=== PATIENT | female | born 1990 | race Caucasian/White ===

== ENCOUNTER 2017-06-29 15:07 | Inpatient (IN) | payer BC ==
[2017-06-29] MEDS ORDERED: Butorphanol 1 MG/ML SDV IVPUSH PRN (15:15)
[2017-06-29] MEDS ORDERED: Water For Irrigation,Sterile 1,000 ML Container IRR PRN (15:15)
[2017-06-29] MEDS ORDERED: Tranexamic Acid 1,000 MG in Sodium Chloride 0.9% 100 ML IV PRN (15:15)
[2017-06-29] MEDS ORDERED: Methylergonovine 0.2 MG/1 ML Amp IM PRN (15:15)
[2017-06-29] MEDS ORDERED: Lidocaine 1% 50 ML MDV INJECT PRN (15:15)
[2017-06-29] MEDS ORDERED: Oxytocin/0.9 % Sodium Chloride 30 UNIT/500 ML BAG IV SCH ×2 (15:15→18:45)
[2017-06-29] MEDS ORDERED: Carboprost Tromethamine 250 MCG/1 ML Amp IM PRN (15:15)
[2017-06-29] MEDS ORDERED: Sodium Chloride 0.9% 2.5 ML Syringe FLUSH PRN (15:15)
[2017-06-29] MEDS ORDERED: Misoprostol 200 MCG Tab PO PRN (15:15)
[2017-06-29] MEDS ORDERED: Sodium Chloride 0.9% 10 ML Syringe FLUSH PRN (15:15)
[2017-06-29] MEDS ORDERED: Nalbuphine 10 MG/ML 10 ML MDV IVPUSH PRN (15:15)
[2017-06-29] MEDS: Lactated Ringers 1,000 ML IV SCH ×3 (18:37→19:57)
[2017-06-29] MEDS ORDERED: Terbutaline 1 MG/ML SDV SUBCUT PRN (18:44)
[2017-06-29] MEDS ORDERED: fentaNYL 100 MCG/2 ML SDV ONE ×2 (19:08→20:59)
--- NOTE | 2017-06-29 19:56 | PCM.PREANE ---
Preanesthetic Assessment - Anesthesia/Transfusion/Family Hx Anesthesia History: Prior Anesthesia Without Reaction (Previous epidural - states "it was the hardest part of my pregancy") Family History of Anesthesia Reaction: No Transfusion History: No Prior Transfusion(s) - Review of Systems General: No Symptoms Pulmonary: No Symptoms Cardiovascular: No Symptoms Gastrointestinal: No Symptoms Neurological: No Symptoms Other: Reports: Anxiety - Physical Assessment NPO Status Date: 06/29/17 NPO Status Time: 19:55 (sips/chips) Blood Pressure: 124/65 Height: 5 ft 9 in Weight: 168 lb ASA Class: 2 Mental Status: Alert & Oriented x3 Airway Class: Mallampati = 2 Dentition: Reports: Normal Dentition Thyro-Mental Finger Breadths: 3 Mouth Opening Finger Breadths: 3 ROM/Head Extension: Full Lungs: Clear to Auscultation, Normal Respiratory Effort Cardiovascular: Regular Rate, Regular Rhythm - Lab Values: Laboratory Last Values WBC 7.75 K/uL (4.0-11.0) 06/29/17 15:26 RBC 4.31 M/uL (4.30-5.90) 06/29/17 15:26 Hgb 13.5 g/dL (12.0-16.0) 06/29/17 15:26 Hct 39.5 % (36.0-46.0) 06/29/17 15:26 MCV 91.6 fL (80.0-98.0) 06/29/17 15:26 MCH 31.3 pg (27.0-32.0) 06/29/17 15:26 MCHC 34.2 g/dL (31.0-37.0) 06/29/17 15:26 RDW Std Deviation 44.1 fl (28.0-62.0) 06/29/17 15:26 RDW Coeff of Fermín 13 % (11.0-15.0) 06/29/17 15:26 Plt Count 136 K/uL (150-400) L 06/29/17 15:26 MPV 10.50 fL (7.40-12.00) 06/29/17 15:26 Nucleated RBC % 0.0 /100WBC 06/29/17 15:26 Nucleated RBCs # 0 K/uL 06/29/17 15:26 Blood Type O POSITIVE 06/29/17 15:26 Antibody Screen NEGATIVE 06/29/17 15:26 - Allergies Allergies/Adverse Reactions: Allergies Allergy/AdvReac Type Severity Reaction Status Date / Time No Known Allergies Allergy Verified 06/29/17 15:14 - Blood Blood Available: No Product(s) Available: None - Anesthesia Plan Free Text/Narrative:: Labor Epidural - Acknowledgements Anesthesia Type Planned: Epidural Pt an Appropriate Candidate for the Planned Anesthesia: Yes Alternatives and Risks of Anesthesia Discussed w Pt/Guardian: Yes Pt/Guardian Understands and Agrees with Anesthesia Plan: Yes PreAnesthesia Questionnaire - Past Health History Medical/Surgical History: Denies 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: - SUBSTANCE USE Smoking Status *Q: Never Smoker Second Hand Smoke Exposure: No Recreational Drug Use History: No - HOME MEDS Home Medications: Home Meds PNV95/Ferrous Fumarate/FA [ Tablet] 1 each PO DAILY 06/29/17 [History] - CURRENT (IN HOUSE) MEDS Current Meds: Current Medications Butorphanol Tartrate (Stadol) 1 mg IVPUSH Q1H PRN PRN Reason: Pain Carboprost Tromethamine (Hemabate Ds) 250 mcg IM ASDIRECTED PRN PRN Reason: Post Hemorrhage Lactated Ringer's (Ringers, Lactated) 1,000 mls @ 150 mls/hr IV ASDIRECTED KASIA Last Admin: 06/29/17 19:33 Dose: 999 mls/hr Oxytocin/Sodium Chloride (Oxytocin 30 Unit/500 Ml-Ns) 30 unit in 500 mls @ 250 mls/hr IV TITRATE KASIA Tranexamic Acid 1,000 mg/ (Sodium Chloride) 110 mls @ 660 mls/hr IV ONETIME PRN PRN Reason: Bleeding Oxytocin/Sodium Chloride (Oxytocin 30 Unit/500 Ml-Ns) 30 unit in 500 mls @ 2 mls/hr IV TITRATE KASIA; Protocol Last Admin: 06/29/17 19:40 Dose: 2 munits/min, 2 mls/hr Lidocaine HCl (Xylocaine 1%) 50 ml INJECT .ONCE PRN PRN Reason: Laceration repair Methylergonovine Maleate (Methergine) 0.2 mg IM ASDIRECTED PRN PRN Reason: Post Hemorrhage Misoprostol (Cytotec) 200 mcg PO .ONCE PRN PRN Reason: Post Hemorrhage Nalbuphine HCl (Nubain) 10 mg IVPUSH Q1H PRN PRN Reason: Pain (severe 7-10) Sodium Chloride (Saline Flush) 10 ml FLUSH ASDIRECTED PRN PRN Reason: Keep Vein Open Sodium Chloride (Saline Flush) 2.5 ml FLUSH ASDIRECTED PRN PRN Reason: Keep Vein Open Sterile Water (Sterile Water For Irrigation) 1,000 ml IRR ASDIRECTED PRN PRN Reason: delivery Terbutaline Sulfate (Brethine) 0.25 mg SUBCUT ASDIRECTED PRN PRN Reason: Tacysystole Discontinued Medications Fentanyl (Sublimaze) Confirm Administered Dose 100 mcg .ROUTE .STK-MED ONE Stop: 06/29/17 19:09 Fentanyl/Bupivacaine HCl (Ixwtyhhd-Azwsh-Ak 2 Mcg/Ml-0.125%) Confirm Administered Dose 100 mls @ as directed EP .STK-MED ONE Stop: 06/29/17 19:09
[2017-06-29] MEDS ORDERED: Lidocaine 2% 5 ML SDV ONE (20:59)
[2017-06-29] MEDS ORDERED: Benzocaine/Menthol 20%-0.5% Spray 78 GM Cannister TOP PRN (21:24)
[2017-06-29] MEDS ORDERED: Ondansetron 4 MG/2 ML SDV IVPUSH PRN (21:24)
[2017-06-29] MEDS ORDERED: Lanolin 100% Cream 7 GM Tube TOP PRN (21:24)
[2017-06-29] MEDS ORDERED: Acetaminophen 500 MG Tab PO PRN ×2 (21:24)
[2017-06-29] MEDS ORDERED: Ibuprofen 400 MG Tab PO PRN (21:24)
[2017-06-29] MEDS ORDERED: Witch Hazel Medicated Pads 40/Jar TOP PRN (21:24)
[2017-06-29] MEDS ORDERED: Aluminum Hydroxide/Magnesium Hydroxide/Simethicone Susp 30 ML Cup PO PRN (21:24)
[2017-06-29] MEDS ORDERED: Bisacodyl 10 MG Supp RECTAL PRN (21:24)
[2017-06-29] MEDS: Docusate Sodium 100 MG Cap PO PRN (23:20)
[2017-06-29] MEDS: Ibuprofen 800 MG Tab PO PRN (23:21)
--- NOTE | 2017-06-30 00:57 | OR ---
SURGEON: Piper Naylor M.D. DATE OF PROCEDURE: 06/29/2017 PREOPERATIVE DIAGNOSES: 1. A 39 weeks' intrauterine . 2. Premature rupture of membranes. POSTOPERATIVE DIAGNOSES: 1. A 39 weeks' intrauterine . 2. Premature rupture of membranes. PROCEDURE: Spontaneous vaginal delivery. First-degree midline laceration repair. ANESTHESIA: Epidural/local. ESTIMATED BLOOD LOSS: 350 mL. FINDINGS: Term male, scores of 6 at 1 minute and 9 at 5 minutes. Weight is pending. Spontaneous delivery, intact placenta, 3-vessel cord. DISPOSITION: Infant to nursery, mom in LDRP, stable. PROCEDURE IN DETAIL: The patient is a 26-year-old, G2, P1, at 39 weeks' gestational age, who presents with a leaking of fluid today, was evaluated and found to be spontaneously ruptured. She was monitored throughout the afternoon with no evidence of active labor, found to be 2 to 3 cm, heart tones of 140s, therefore, she was initiated on Pitocin augmentation, responded nicely to this and quickly became much more vigorous labor. With increasing discomfort, she underwent regional anesthesia in the form of epidural, became more comfortable, she progressed to 6 cm and then quickly progressed to 8, then to complete within the next approximately 45 minutes. I was called for delivery. Upon my arrival, the patient was placed in modified dorsal lithotomy position. She was prepped and draped in the usual aseptic manner. She was having some pain control issues and her epidural was re-dosed with Anesthesia present. The patient was able to push satisfactory, although delivered 's head atraumatically, spontaneously, followed by anterior shoulder, posterior shoulder, and remainder of the body without difficulty. The infant's oropharynx and nares were bulb suctioned. Cord clamped x2 and cut after nuchal cord had been reduced manually. was handed to his mother with attending nursing staff at her side. Cord arterial, cord venous, and cord blood sampling was obtained. Light suprapubic pressure was applied, while the placenta was delivered spontaneously intact. Vigorous fundal uterine massage was then applied while 30 units of Pitocin was delivered in 500 mL of IV fluid. Upon inspection of cervix, vaginal sidewalls, and perineum, there was found to be a first-degree midline laceration, was repaired using 3-0 Vicryl in the usual fashion after prepping the region with approximately 10 mL of 1% lidocaine. The patient tolerated the procedure well. Hemostasis remained evident. Uterus remained firm. Sponge count and needle count were correct. The patient remained in LDRP, infant in nursery. MIGEL / AARTI /[id number]
--- NOTE | 2017-06-30 06:03 | PCM48HPAN ---
Post Anesthesia Note - EVALUATION WITHIN 48HRS OF ANESTHETIC Vital Signs in Normal Range: Yes Patient Participated in Evaluation: Yes Respiratory Function Stable: Yes Airway Patent: Yes Cardiovascular Function Stable: Yes Hydration Status Stable: Yes Pain Control Satisfactory: Yes Nausea and Vomiting Control Satisfactory: Yes Mental Status Recovered: Yes Blood Pressure: 124/65 - COMMENTS/OBSERVATIONS Free Text/Narrative:: No anesthesia complications
[2017-06-30] MEDS: Docusate Sodium 100 MG Cap PO PRN (08:58)
[2017-06-30] MEDS: oxyCODONE 5 MG Tab PO PRN ×3 (08:58→22:46)
--- NOTE | 2017-06-30 09:04 | PCM.PNPP ---
- General Info Date of Service: 06/30/17 Functional Status: Reports: Pain Controlled, Tolerating Diet, Ambulating, Urinating - Review of Systems General: Denies: Fever, Fatigue, Chills HEENT: Denies: Headaches Pulmonary: Denies: Shortness of Breath, Pleuritic Chest Pain Cardiovascular: Denies: Chest Pain, Palpitations, Dyspnea on Exertion Gastrointestinal: Denies: Abdominal Pain Genitourinary: Denies: Dysuria, Burning, Incontinence Skin: Reports: No Symptoms Neurological: Reports: No Symptoms Psychiatric: Reports: No Symptoms - General Info Date of Service: 06/30/17 - Patient Data Vital Signs - Most Recent: Last Vital Signs Temp 36.6 C 06/30/17 07:39 Pulse 69 06/30/17 07:39 Resp 18 06/30/17 07:39 BP 109/65 06/30/17 07:39 Pulse Ox 97 06/30/17 07:39 Weight - Most Recent: 168 lb Lab Results - Last 24 Hours: Laboratory Results - last 24 hr 06/29/17 06/29/17 06/29/17 Range/Units 15:26 15:26 21:04 WBC 7.75 (4.0-11.0) K/uL RBC 4.31 (4.30-5.90) M/uL Hgb 13.5 (12.0-16.0) g/dL Hct 39.5 (36.0-46.0) % MCV 91.6 (80.0-98.0) fL MCH 31.3 (27.0-32.0) pg MCHC 34.2 (31.0-37.0) g/dL RDW Std Deviation 44.1 (28.0-62.0) fl RDW Coeff of Fermín 13 (11.0-15.0) % Plt Count 136 L (150-400) K/uL MPV 10.50 (7.40-12.00) fL Nucleated RBC % 0.0 /100WBC Nucleated RBCs # 0 K/uL Cord ABG pH 7.350 (7.18-7.38) Cord ABG Base Excess -1 H (-10--2) Cord VBG pH 7.451 H (7.25-7.45) Cord VBG Base Excess -2 (-10--2) Blood Type O POSITIVE Antibody Screen NEGATIVE 06/30/17 Range/Units 04:40 WBC (4.0-11.0) K/uL RBC (4.30-5.90) M/uL Hgb 11.3 L (12.0-16.0) g/dL Hct 32.7 L (36.0-46.0) % MCV (80.0-98.0) fL MCH (27.0-32.0) pg MCHC (31.0-37.0) g/dL RDW Std Deviation (28.0-62.0) fl RDW Coeff of Fermín (11.0-15.0) % Plt Count (150-400) K/uL MPV (7.40-12.00) fL Nucleated RBC % /100WBC Nucleated RBCs # K/uL Cord ABG pH (7.18-7.38) Cord ABG Base Excess (-10--2) Cord VBG pH (7.25-7.45) Cord VBG Base Excess (-10--2) Blood Type Antibody Screen Med Orders - Current: Current Medications Acetaminophen (Tylenol Extra Strength) 500 mg PO Q4H PRN PRN Reason: Pain Acetaminophen (Tylenol Extra Strength) 1,000 mg PO Q4H PRN PRN Reason: Pain Last Admin: 06/30/17 05:34 Dose: 1,000 mg Al Hydroxide/Mg Hydroxide (Mag-Al Plus) 30 ml PO Q8H PRN PRN Reason: Heartburn Benzocaine/Menthol (Dermoplast Pain Relief 20%-0.5% [place]) 0 gm TOP ASDIRECTED PRN PRN Reason: Perineal Comfort Measure Last Admin: 06/29/17 23:19 Dose: 1 canister Bisacodyl (Dulcolax) 10 mg RECTAL .ONCE PRN PRN Reason: Constipation Carboprost Tromethamine (Hemabate Ds) 250 mcg IM ASDIRECTED PRN PRN Reason: Post Hemorrhage Docusate Sodium (Colace) 100 mg PO BID PRN PRN Reason: Constipation Last Admin: 06/29/17 23:20 Dose: 100 mg Emollient Ointment (Lansinoh Hpa) 0 gm TOP ASDIRECTED PRN PRN Reason: Sore Nipples Last Admin: 06/29/17 23:21 Dose: 1 tube Lactated Ringer's (Ringers, Lactated) 1,000 mls @ 150 mls/hr IV ASDIRECTED KASIA Last Admin: 06/29/17 19:57 Dose: 999 mls/hr Oxytocin/Sodium Chloride (Oxytocin 30 Unit/500 Ml-Ns) 30 unit in 500 mls @ 250 mls/hr IV TITRATE KASIA Last Admin: 06/29/17 22:06 Dose: 250 mls/hr Tranexamic Acid 1,000 mg/ (Sodium Chloride) 110 mls @ 660 mls/hr IV ONETIME PRN PRN Reason: Bleeding Oxytocin/Sodium Chloride (Oxytocin 30 Unit/500 Ml-Ns) 30 unit in 500 mls @ 2 mls/hr IV TITRATE [facility]; Protocol Last Admin: 06/29/17 19:40 Dose: 2 munits/min, 2 mls/hr Ibuprofen (Motrin) 400 mg PO Q4H PRN PRN Reason: Pain Ibuprofen (Motrin) 800 mg PO Q6H PRN PRN Reason: Pain Last Admin: 06/29/17 23:21 Dose: 800 mg Lidocaine HCl (Xylocaine 1%) 50 ml INJECT .ONCE PRN PRN Reason: Laceration repair Last Admin: 06/29/17 21:46 Dose: 50 ml Methylergonovine Maleate (Methergine) 0.2 mg IM ASDIRECTED PRN PRN Reason: Post Hemorrhage Nalbuphine HCl (Nubain) 10 mg IVPUSH Q1H PRN PRN Reason: Pain (severe 7-10) Ondansetron HCl (Zofran) 4 mg IVPUSH Q6H PRN PRN Reason: Nausea/Vomiting Oxycodone HCl (Oxycodone) 5 mg PO Q2H PRN PRN Reason: Pain Sodium Chloride (Saline Flush) 10 ml FLUSH ASDIRECTED PRN PRN Reason: Keep Vein Open Sodium Chloride (Saline Flush) 2.5 ml FLUSH ASDIRECTED PRN PRN Reason: Keep Vein Open Witch Laly (Tucks) 1 pad TOP ASDIRECTED PRN PRN Reason: comfort care Last Admin: 06/29/17 23:20 Dose: 1 tub Discontinued Medications Butorphanol Tartrate (Stadol) 1 mg IVPUSH Q1H PRN PRN Reason: Pain Fentanyl (Sublimaze) Confirm Administered Dose 100 mcg .ROUTE .STK-MED ONE Stop: 05/09/18 19:09 Last Admin: 06/30/17 07:26 Dose: Not Given Fentanyl (Sublimaze) Confirm Administered Dose 100 mcg .ROUTE .STK-MED ONE Stop: 06/29/17 21:00 Last Admin: 06/30/17 07:26 Dose: Not Given Fentanyl/Bupivacaine HCl (Ajpwamlg-Elvph-Ma 2 Mcg/Ml-0.125%) Confirm Administered Dose 100 mls @ as directed EP .STK-MED ONE Stop: 06/29/17 19:09 Last Admin: 06/30/17 07:26 Dose: Not Given Lidocaine (Xylocaine-Mpf 2%) Confirm Administered Dose 5 ml .ROUTE .STK-MED ONE Stop: 06/29/17 21:00 Last Admin: 06/30/17 07:26 Dose: Not Given Misoprostol (Cytotec) 200 mcg PO .ONCE PRN PRN Reason: Post Hemorrhage Sterile Water (Sterile Water For Irrigation) 1,000 ml IRR ASDIRECTED PRN PRN Reason: delivery Last Admin: 06/29/17 21:46 Dose: 1,000 ml Terbutaline Sulfate (Brethine) 0.25 mg SUBCUT ASDIRECTED PRN PRN Reason: Tacysystole - Interaction Disposition, : to Nursery Feeding: Breastfed ; Nursed Well Support Person: - Recovery Exam Fundal Tone: Firm Fundal Level: At Umbilicus Fundal Placement: Left Lochia Amount: Small Lochia Color: Rubra/Red Perineum Description: Intact, Minimal Bruising/Swelling Episiotomy/Laceration: Approximated Bladder Status: Voiding Urinary Elimination: Voided - Exam General: Alert, Oriented HEENT: Pupils Equal Neck: Supple Lungs: Clear to Auscultation, Normal Respiratory Effort Cardiovascular: Regular Rate, Regular Rhythm GI/Abdominal Exam: Normal Bowel Sounds Extremities: Non-Tender, Pedal Edema Skin: Warm Psy/Mental Status: Alert, Normal Affect, Normal Mood - Problem List & Annotations (1) Vaginal delivery SNOMED Code(s): 141973088 Code(s): O80 - ENCOUNTER FOR FULL-TERM UNCOMPLICATED DELIVERY Status: Acute Current Visit: Yes - Problem List Review Problem List Initiated/Reviewed/Updated: Yes - My Orders Last 24 Hours: My Active Orders 06/29/17 15:15 Patient Status [ADT] Routine Heart Tones [RC] CONTINUOUS Non Stress Test [RC] PER UNIT ROUTINE May Shower [RC] ASDIRECTED Notify Provider [RC] PRN Up ad Adrienne [RC] ASDIRECTED Vaginal Exam [RC] PRN Vital Signs [RC] PER UNIT ROUTINE Carboprost Tromethamine [Hemabate DS] 250 mcg IM ASDIRECTED PRN Lactated Ringers [Ringers, Lactated] 1,000 ml IV ASDIRECTED Lidocaine 1% [Xylocaine 1%] 50 ml INJECT .ONCE PRN Methylergonovine [Methergine] 0.2 mg IM ASDIRECTED PRN Nalbuphine [Nubain] 10 mg IVPUSH Q1H PRN Oxytocin/0.9 % Sodium Chloride [Oxytocin 30 Unit/500 ML-NS] 30 unit in 500 ml IV TITRATE Sodium Chloride 0.9% [Saline Flush] 10 ml FLUSH ASDIRECTED PRN Sodium Chloride 0.9% [Saline Flush] 2.5 ml FLUSH ASDIRECTED PRN Tranexamic Acid [Cyklokapron] 1,000 mg Sodium Chloride 0.9% [Normal Saline] 100 ml IV ONETIME Peripheral IV Insertion Adult [OM.PC] Routine Resuscitation Status Routine 06/29/17 18:44 Bedrest Bathroom Privileges [RC] ASDIRECTED Communication Order [RC] ASDIRECTED Communication Order [RC] ASDIRECTED Notify Provider [RC] PRN Notify Provider [RC] STAT Oxygen Therapy [RC] ASDIRECTED Vaginal Exam [RC] PRN Vital Signs [RC] PER UNIT ROUTINE 06/29/17 18:45 Oxytocin/0.9 % Sodium Chloride [Oxytocin 30 Unit/500 ML-NS] 30 unit in 500 ml IV TITRATE Medication Administration Instruction [OM.PC] Q3H 06/30/17 08:57 Ready for Discharge [RC] PER UNIT ROUTINE - Assessment Assessment:: PPD#1 s/p stable and afebrile Clinically stable and would like to go home later today - Plan Plan:: Discharge instructions were reviewed with patient Nothing in the vagina for 6 weeks Bleeding and infection precautions reviewed Continue PNV and use OTC pain meds PRN S/S of blues and depression reviewed Follow up in 6 weeks
[2017-06-30] MEDS: Ibuprofen 800 MG Tab PO PRN ×2 (12:04→19:24)
== END 2017-06-30 22:45 | disposition home or self-care (01) | DRG 560 ==
LOC: MW.OBCHECK 15:07 → MW.OB 15:10 → MW.OBCHECK 15:15 → OBSVTOIN 21:04
PROVIDERS: ADMIT Obstetrics & Gynecology; ATTEND Obstetrics & Gynecology
PROC: 10E0XZZ Delivery of Products of Conception, External Approach (ICD-10-PCS; principal; 2017-06-29)
PROC: 0HQ9XZZ Repair Perineum Skin, External Approach (ICD-10-PCS; 2017-06-29)
DX: O42.02 Full-term premature rupture of membranes, onset of labor within 24 hours of rupture (principal); O70.0 First degree perineal laceration during delivery; Z3A.39 39 weeks gestation of pregnancy; Z37.0 Single live birth
CPT/HCPCS: 36415; 51702; 59025; 59409; 82803; 85014; 85018; 85027; 86850; 86900; 86901; A9270-GY; J2590; J7120

== ENCOUNTER 2018-04-27 11:27 | Day surgery (SDC) | payer BC ==
[2018-04-27] MEDS ORDERED: Sodium Chloride 0.9% 2.5 ML Syringe FLUSH PRN (11:32)
[2018-04-27] MEDS ORDERED: Sodium Chloride 0.9% 10 ML Syringe FLUSH PRN (11:32)
[2018-04-27] MEDS ORDERED: Sodium Chloride 0.9% 1,000 ML IV ONE (11:32)
--- NOTE | 2018-04-27 12:05 | EDM.PDOC ---
ED HPI GENERAL MEDICAL PROBLEM - General Chief Complaint: Abdominal Pain Stated Complaint: RIGHT SIDE ABDOMINAL PAIN Time Seen by Provider: 04/27/18 11:29 Source of Information: Reports: Patient History Limitations: Reports: No Limitations - History of Present Illness INITIAL COMMENTS - FREE TEXT/NARRATIVE: History of present illness: []Patient started having abdominal pain behind her bellybutton 4 nights ago the pain has progressively been worsening and now it is localized to the right lower abdomen. She denies injuring any fevers or chills but has felt hot she states due to pain. Has not had any vomiting, diarrhea, urinary complaints. His abdominal surgeries.. Review of systems: As per history of present illness and below otherwise all systems reviewed and negative. Past medical history: As per history of present illness and as reviewed below otherwise noncontributory. Surgical history: As per history of present illness and as reviewed below otherwise noncontributory. Social history: No reported history of drug or alcohol abuse. Family history: As per history of present illness and as reviewed below otherwise noncontributory. Physical exam: General: Well developed, well nourished in NAD HEENT: Atraumatic, normocephalic, pupils reactive, negative for conjunctival pallor or scleral icterus, mucous membranes moist, throat clear, neck supple, nontender, trachea midline. Lungs: Clear to auscultation, breath sounds equal bilaterally, chest nontender. Heart: S1S2, regular, negative for clicks, rubs, or JVD. Abdomen: NABS, Soft, nondistended, tender bilaterally in the lower abdomen without rebound or guarding. Negative for masses or hepatosplenomegaly. Negative for costovertebral tenderness. Pelvis: Stable nontender. Genitourinary: Deferred. Rectal: Deferred. Extremities: Atraumatic, negative for cords or calf pain. Neurovascular unremarkable. Neuro: Awake, alert, oriented. Cranial nerves II through XII unremarkable. Cerebellum unremarkable. Motor and sensory unremarkable throughout. Exam nonfocal. Skin:warm and dry Diagnostics: CBC, CMP, lipase, UA, , CT abdomen pelvis Therapeutics: IV hydration, Zosyn ED Course: Dinh consulted he will be taking this patient to surgery for short stay. Impression: Acute appendicitis Prescriptions: None Plan: Admit short stay surgery Definitive disposition and diagnosis as appropriate pending reevaluation and review of above. Right Lower Abdomen Pain Score (Numeric/FACES): 6 - Related Data Allergies Allergy/AdvReac Type Severity Reaction Status Date / Time No Known Allergies Allergy Verified 04/27/18 11:47 Home Meds: Home Meds Norethindrone 1 tab DAILY 04/27/18 [History] Past Medical History - Past Health History Medical/Surgical History: Denies Medical/Surgical History [employer] History: Reports: Social & Family History - Family History Family Medical History: Noncontributory Psychiatric: Reports: Other (See Below) Other Psychiatric Family History: Alcoholic - Tobacco Use Smoking Status *Q: Never Smoker - Recreational Drug Use Recreational Drug Use: No ED ROS GENERAL - Review of Systems Review Of Systems: ROS reveals no pertinent complaints other than HPI. ED EXAM, GI/ABD - Physical Exam Exam: See Below (See history of present illness) Course - Vital Signs Last Recorded V/S: Last Vital Signs Temp 97.4 F 04/27/18 14:57 Pulse 66 04/27/18 14:57 Resp 18 04/27/18 16:08 BP 96/65 04/27/18 14:57 Pulse Ox 98 04/27/18 16:08 - Orders/Labs/Meds Orders: Active Orders 24 hr Category Date Time Status Patient Status [ADT] Routine ADT 04/27/18 15:50 Active Antiembolic Devices [RC] PER UNIT ROUTINE Care 04/27/18 15:50 Active Insert Urinary Catheter [OM.PC] Timed Care 04/27/18 15:50 Ordered Oxygen Therapy [RC] ASDIRECTED Care 04/27/18 15:50 Active RT Incentive Spirometry [RC] Q1HWA Care 04/27/18 15:50 Active Skin Preparation [RC] .PREOP Care 04/27/18 15:50 Active Urinary Catheter Assessment [RC] ASDIRECTED Care 04/27/18 15:50 Active Urinary Catheter Assessment [RC] ASDIRECTED Care 04/27/18 15:50 Active Urinary Catheter Assessment [RC] ASDIRECTED Care 04/27/18 15:50 Active Vital Signs [RC] PER UNIT ROUTINE Care 04/27/18 15:50 Active Nothing Per Oral Diet [DIET] Diet 04/27/18 Dinner Active Lactated Ringers [Ringers, Lactated] 1,000 ml Med 04/27/18 16:00 Active IV ASDIRECTED Sodium Chloride 0.9% [Saline Flush] Med 04/27/18 11:32 Active 10 ml FLUSH ASDIRECTED PRN Sodium Chloride 0.9% [Saline Flush] Med 04/27/18 11:32 Active 2.5 ml FLUSH ASDIRECTED PRN Antiembolic Hose [OM.PC] Routine Oth 04/27/18 15:50 Ordered Saline Lock Insert [OM.PC] Stat Oth 04/27/18 11:32 Ordered Resuscitation Status Routine Resus Stat 04/27/18 15:49 Ordered Medication Orders Lactated Ringer's (Ringers, Lactated) 1,000 mls @ 125 mls/hr IV ASDIRECTED KASIA Sodium Chloride (Saline Flush) 10 ml FLUSH ASDIRECTED PRN PRN Reason: Keep Vein Open Sodium Chloride (Saline Flush) 2.5 ml FLUSH ASDIRECTED PRN PRN Reason: Keep Vein Open Labs: Laboratory Tests 04/27/18 04/27/18 04/27/18 Range/Units 11:45 11:45 12:15 WBC 6.43 (4.0-11.0) K/uL RBC 4.88 (4.30-5.90) M/uL Hgb 14.8 (12.0-16.0) g/dL Hct 43.0 (36.0-46.0) % MCV 88.1 (80.0-98.0) fL MCH 30.3 (27.0-32.0) pg MCHC 34.4 (31.0-37.0) g/dL RDW Std Deviation 42.7 (28.0-62.0) fl RDW Coeff of [place] 13 (11.0-15.0) % Plt Count 194 (150-400) K/uL MPV 9.30 (7.40-12.00) fL Neut % (Auto) 62.2 (48.0-80.0) % Lymph % (Auto) 24.3 (16.0-40.0) % [place] % (Auto) 8.2 (0.0-15.0) % Eos % (Auto) 5.0 (0.0-7.0) % Baso % (Auto) 0.3 (0.0-1.5) % Neut # (Auto) 4.0 (1.4-5.7) K/uL Lymph # (Auto) 1.6 (0.6-2.4) K/uL [place] # (Auto) 0.5 (0.0-0.8) K/uL Eos # (Auto) 0.3 (0.0-0.7) K/uL Baso # (Auto) 0.0 (0.0-0.1) K/uL Sodium 144 (136-145) mmol/L Potassium 3.7 (3.5-5.1) mmol/L Chloride 107 (98-107) mmol/L Carbon Dioxide 25.9 (21.0-32.0) mmol/L BUN 16 (7.0-18.0) mg/dL Creatinine 0.8 (0.6-1.0) mg/dL Est Cr Clr Drug Dosing 104.96 mL/min Estimated GFR (MDRD) > 60.0 ml/min Glucose 90 (74-106) mg/dL Calcium 9.9 (8.5-10.1) mg/dL Total Bilirubin 0.4 (0.2-1.0) mg/dL AST 14 L (15-37) IU/L ALT 31 (14-63) IU/L Alkaline Phosphatase 107 (46-116) U/L Total Protein 8.3 H (6.4-8.2) g/dL Albumin 4.5 (3.4-5.0) g/dL Globulin 3.8 (2.6-4.0) g/dL Albumin/Globulin Ratio 1.2 (0.9-1.6) Lipase 136 (73-393) U/L Urine Color YELLOW Urine Appearance CLEAR Urine pH 6.0 (5.0-8.0) Ur Specific [place] >= 1.030 (1.001-1.035) Urine Protein NEGATIVE (NEGATIVE) mg/dL Urine Glucose (UA) NEGATIVE (NEGATIVE) mg/dL Urine Ketones TRACE H (NEGATIVE) mg/dL Urine Occult Blood NEGATIVE (NEGATIVE) Urine Nitrite NEGATIVE (NEGATIVE) Urine Bilirubin NEGATIVE (NEGATIVE) Urine Urobilinogen 0.2 (<2.0) EU/dL Ur Leukocyte Esterase NEGATIVE (NEGATIVE) Urine RBC 0-1 (0-2/HPF) Urine WBC 0-1 (0-5/HPF) Ur Epithelial Cells OCCASIONAL (NONE-FEW) Urine Bacteria RARE (NEGATIVE) Urine HCG, Qual (NEGATIVE) 04/27/18 Range/Units 12:15 WBC (4.0-11.0) K/uL RBC (4.30-5.90) M/uL Hgb (12.0-16.0) g/dL Hct (36.0-46.0) % MCV (80.0-98.0) fL MCH (27.0-32.0) pg MCHC (31.0-37.0) g/dL RDW Std Deviation (28.0-62.0) fl RDW Coeff of [place] (11.0-15.0) % Plt Count (150-400) K/uL MPV (7.40-12.00) fL Neut % (Auto) (48.0-80.0) % Lymph % (Auto) (16.0-40.0) % [place] % (Auto) (0.0-15.0) % Eos % (Auto) (0.0-7.0) % Baso % (Auto) (0.0-1.5) % Neut # (Auto) (1.4-5.7) K/uL Lymph # (Auto) (0.6-2.4) K/uL [place] # (Auto) (0.0-0.8) K/uL Eos # (Auto) (0.0-0.7) K/uL Baso # (Auto) (0.0-0.1) K/uL Sodium (136-145) mmol/L Potassium (3.5-5.1) mmol/L Chloride (98-107) mmol/L Carbon Dioxide (21.0-32.0) mmol/L BUN (7.0-18.0) mg/dL Creatinine (0.6-1.0) mg/dL Est Cr Clr Drug Dosing mL/min Estimated GFR (MDRD) ml/min Glucose (74-106) mg/dL Calcium (8.5-10.1) mg/dL Total Bilirubin (0.2-1.0) mg/dL AST (15-37) IU/L ALT (14-63) IU/L Alkaline Phosphatase (46-116) U/L Total Protein (6.4-8.2) g/dL Albumin (3.4-5.0) g/dL Globulin (2.6-4.0) g/dL Albumin/Globulin Ratio (0.9-1.6) Lipase (73-393) U/L Urine Color Urine Appearance Urine pH (5.0-8.0) Ur Specific [place] (1.001-1.035) Urine Protein (NEGATIVE) mg/dL Urine Glucose (UA) (NEGATIVE) mg/dL Urine Ketones (NEGATIVE) mg/dL Urine Occult Blood (NEGATIVE) Urine Nitrite (NEGATIVE) Urine Bilirubin (NEGATIVE) Urine Urobilinogen (<2.0) EU/dL Ur Leukocyte Esterase (NEGATIVE) Urine RBC (0-2/HPF) Urine WBC (0-5/HPF) Ur Epithelial Cells (NONE-FEW) Urine Bacteria (NEGATIVE) Urine HCG, Qual NEGATIVE (NEGATIVE) Meds: Medications Generic Name Dose Route Start Last Admin Trade Name [place] PRN Reason Stop Dose Admin Lactated Ringer's 1,000 mls @ 125 mls/hr 04/27/18 16:00 Ringers, Lactated IV ASDIRECTED KASIA Sodium Chloride 10 ml 04/27/18 11:32 Saline Flush FLUSH ASDIRECTED PRN Keep Vein Open Sodium Chloride 2.5 ml 04/27/18 11:32 Saline Flush FLUSH ASDIRECTED PRN Keep Vein Open Discontinued Medications Generic Name Dose Route Start Last Admin Trade Name Freq PRN Reason Stop Dose Admin Bupivacaine HCl Confirm 04/27/18 16:00 Sensorcaine-Mpf 0.5% Administered 04/27/18 16:01 Dose 10 ml .ROUTE .STK-MED ONE Cefazolin Sodium Confirm 04/27/18 16:00 Ancef Administered 04/27/18 16:01 Dose 1 gm .ROUTE .STK-MED ONE Dexamethasone Confirm 04/27/18 16:10 Dexamethasone Administered 04/27/18 16:11 Dose 20 mg .ROUTE .STK-MED ONE Fentanyl Confirm 04/27/18 16:01 Sublimaze Administered 04/27/18 16:02 Dose 100 mcg .ROUTE .STK-MED ONE Glycopyrrolate Confirm 04/27/18 16:10 Robinul Administered 04/27/18 16:11 Dose 0.4 mg .ROUTE .STK-MED ONE Hydromorphone HCl Confirm 04/27/18 16:01 Dilaudid Administered 04/27/18 16:02 Dose 2 mg .ROUTE .STK-MED ONE Sodium Chloride 1,000 mls @ 999 mls/hr 04/27/18 11:32 04/27/18 11:58 Normal Saline IV 04/27/18 12:32 999 mls/hr .Bolus ONE Administration Piperacillin Sod/Tazobactam 50 mls @ 100 mls/hr 04/27/18 14:01 04/27/18 14:23 Sod 3.375 gm/ Sodium Chloride IV 04/27/18 14:30 100 mls/hr ONETIME ONE Administration Lidocaine HCl Confirm 04/27/18 16:10 Xylocaine-Mpf 1% Administered 04/27/18 16:11 Dose 5 mls @ as directed .ROUTE .STK-MED ONE Iopamidol 100 ml 04/27/18 13:10 04/27/18 13:11 Isovue Multipack-370 (76%) IVPUSH 04/27/18 13:11 100 ml ONETIME STA Administration Ketorolac Tromethamine 30 mg 04/27/18 12:26 04/27/18 12:37 Toradol IVPUSH 04/27/18 12:27 30 mg ONETIME ONE Administration Midazolam HCl Confirm 04/27/18 16:01 Versed 1 Mg/Ml Administered 04/27/18 16:02 Dose 2 mg .ROUTE .STK-MED ONE Neostigmine Methylsulfate Confirm 04/27/18 16:10 Neostigmine Administered 04/27/18 16:11 Dose 5 mg .ROUTE .STK-MED ONE Ondansetron HCl Confirm 04/27/18 16:10 Zofran Administered 04/27/18 16:11 Dose 4 mg .ROUTE .STK-MED ONE Propofol Confirm 04/27/18 16:01 Diprivan 20 Ml Administered 04/27/18 16:02 Dose 200 mg .ROUTE .STK-MED ONE Rocuronium [place] Confirm 04/27/18 16:10 Zemuron Administered 04/27/18 16:11 Dose 100 mg .ROUTE .STK-MED ONE Succinylcholine Chloride Confirm 04/27/18 16:10 Quelicin Administered 04/27/18 16:11 Dose 200 mg .ROUTE .STK-MED ONE Departure - Departure Time of Disposition: 16:41 Disposition: Home, Self-Care 01 Condition: Good Clinical Impression: Acute appendicitis Qualifiers: Acute appendicitis type: unspecified acute appendicitis type Qualified Code(s) : K35.80 - Unspecified acute appendicitis - Discharge Information - My Orders Last 24 Hours: My Active Orders 04/27/18 11:32 Sodium Chloride 0.9% [Saline Flush] 10 ml FLUSH ASDIRECTED PRN Sodium Chloride 0.9% [Saline Flush] 2.5 ml FLUSH ASDIRECTED PRN Saline Lock Insert [OM.PC] Stat - Assessment/Plan Last 24 Hours: My Active Orders 04/27/18 11:32 Sodium Chloride 0.9% [Saline Flush] 10 ml FLUSH ASDIRECTED PRN Sodium Chloride 0.9% [Saline Flush] 2.5 ml FLUSH ASDIRECTED PRN Saline Lock Insert [OM.PC] Stat
[2018-04-27] MEDS ORDERED: Ketorolac 30 MG/ML SDV IVPUSH ONE (12:26)
[2018-04-27 12:32] LABS: CHLORIDE,CL 107 mmol/L (98-107); SODIUM,NA 144 mmol/L (136-145)
[2018-04-27] MEDS ORDERED: Iopamidol 755 MG/ML 500 ML Multipack Bottle IVPUSH STA (13:10)
--- NOTE | 2018-04-27 13:51 | CT ---
Indication: Right lower quadrant pain Technique: Routine post-contrast CT of the abdomen and pelvis performed. Please note that all CT scans at this facility use dose modulation, iterative reconstruction, and/or weight-based dosing when appropriate to reduce radiation dose to as low as reasonably achievable. Comparison: No comparison Findings: Lung bases are clear. Normal liver, gallbladder, pancreas, spleen, kidneys and adrenal glands. Incidental splenule. No renal or ureteral stone. Normal osseous structures. Normal ovaries. Normal uterus. Normal bladder. The appendix is enlarged measuring up to 11 millimeters and there is mild adjacent inflammatory change along with a small amount of right pelvic free fluid deep in the pelvis. No abscess or obstruction. No free air. The appendix is particularly well seen on the coronal reformatted series, series 203, image 27. No appendicoliths. No bowel obstruction. Impression: Acute appendicitis. No abscess or obstruction. No free air. Please note that all CT scans at this facility use dose modulation, iterative reconstruction, and/or weight-based dosing when appropriate to reduce radiation dose to as low as reasonably achievable. Dictated by Marcelo Ivory MD @ Apr 27 2018 1:43PM Signed by Dr. Marcelo Ivory @ Apr 27 2018 1:49PM
[2018-04-27] MEDS ORDERED: Piperacillin/Tazobactam 3.375 GM in Sodium Chloride 0.9% 50 ML IV ONE (14:01)
--- NOTE | 2018-04-27 15:56 | PCM.CONS ---
H&P History of Present Illness - General Date of Service: 04/27/18 Admit Problem/Dx: Admission Diagnosis/Problem Admission Diagnosis/Problem Appendicitis Patient is a 27-year-old female who presents to the emergency room today with about a 4 day history of abdominal pain. Pain initially began on Tuesday. It was primarily epigastric in nature with occasional nausea and vomiting. Over the last 24-36 hours. It has migrated to the right lower quadrant. Patient does note some discomfort on ambulation. No significant change in bowel habits. No rectal bleeding. Source of Information: Patient History Limitations: Reports: No Limitations - History of Present Illness Symptom Onset Date: 04/23/18 Location: Reports: Abdomen Quality: Reports: Ache, Pressure Improves with: Reports: Rest Worsens with: Reports: Movement Context: Reports: Sick Contact Associated Symptoms: Denies: Fever/Chills, Nausea/Vomiting Right Lower Abdomen Pain Score (Numeric/FACES): 6 - Related Data Allergies/Adverse Reactions: Allergies Allergy/AdvReac Type Severity Reaction Status Date / Time No Known Allergies Allergy Verified 04/27/18 11:47 Home Medications: Home Meds Norethindrone 1 tab DAILY 04/27/18 [History] Past Medical History - Past Health History Medical/Surgical History: Denies Medical/Surgical History [employer] History: Reports: Other OB/BYN History: 2 children at home. The youngest one is 10 months old. Social & Family History - Family History Family Medical History: Noncontributory Psychiatric: Reports: Other (See Below) Other Psychiatric Family History: Alcoholic - Tobacco Use Smoking Status *Q: Never Smoker - Recreational Drug Use Recreational Drug Use: No H&P Review of Systems - Review of Systems: Review Of Systems: See Below General: Denies: Fever, Chills, Malaise, Weakness, Fatigue HEENT: Reports: No Symptoms Pulmonary: Denies: Shortness of Breath, Wheezing Cardiovascular: Denies: Chest Pain, Palpitations Gastrointestinal: Reports: Abdominal Pain, Anorexia, Flatus, Nausea. Denies: Black Stool, Bloody Stool, Constipation, Diarrhea, Distension, Melena, Vomiting Genitourinary: Denies: Dysuria, Frequency, Burning Musculoskeletal: Reports: No Symptoms Skin: Reports: No Symptoms Psychiatric: Reports: No Symptoms Neurological: Reports: No Symptoms Hematologic/Lymphatic: Reports: No Symptoms Immunologic: Reports: No Symptoms Exam - Exam Exam: See Below - Vital Signs Vital Signs: Last Vital Signs Temp 97.4 F 04/27/18 14:57 Pulse 66 04/27/18 14:57 Resp 18 04/27/18 14:57 BP 96/65 04/27/18 14:57 Pulse Ox 98 04/27/18 14:57 Weight: 140 lb - Exam General: Alert, Oriented, Cooperative, Mild Distress HEENT: Conjunctiva Clear, Mucosa Moist & [place], Pupils Equal, Pupils Reactive. No: Scleral Icterus Neck: Supple, Trachea Midline Lungs: Clear to Auscultation, Normal Respiratory Effort Cardiovascular: Regular Rate, Normal S1, Normal S2. No: Tachycardia GI/Abdominal Exam: Normal Bowel Sounds, Soft, Non-Tender, No Distention, Rebound , Tender, Other (positive Rovsing sign). No: Guarding, Rigid (Female) Exam: Deferred Rectal (Female) Exam: Deferred Back Exam: Normal Inspection Extremities: Normal Inspection Peripheral Pulses: 4+: Posterior Tibial (L), Posterior Tibial (R), Dorsalis Pedis (L), Dorsalis Pedis (R) Skin: Warm, Dry, Intact - Patient Data Lab Results Last 24 hrs: Laboratory Results - last 24 hr 04/27/18 04/27/18 04/27/18 Range/Units 11:45 11:45 12:15 WBC 6.43 (4.0-11.0) K/uL RBC 4.88 (4.30-5.90) M/uL Hgb 14.8 (12.0-16.0) g/dL Hct 43.0 (36.0-46.0) % MCV 88.1 (80.0-98.0) fL MCH 30.3 (27.0-32.0) pg MCHC 34.4 (31.0-37.0) g/dL RDW Std Deviation 42.7 (28.0-62.0) fl RDW Coeff of [place] 13 (11.0-15.0) % Plt Count 194 (150-400) K/uL MPV 9.30 (7.40-12.00) fL Neut % (Auto) 62.2 (48.0-80.0) % Lymph % (Auto) 24.3 (16.0-40.0) % [place] % (Auto) 8.2 (0.0-15.0) % Eos % (Auto) 5.0 (0.0-7.0) % Baso % (Auto) 0.3 (0.0-1.5) % Neut # (Auto) 4.0 (1.4-5.7) K/uL Lymph # (Auto) 1.6 (0.6-2.4) K/uL [place] # (Auto) 0.5 (0.0-0.8) K/uL Eos # (Auto) 0.3 (0.0-0.7) K/uL Baso # (Auto) 0.0 (0.0-0.1) K/uL Sodium 144 (136-145) mmol/L Potassium 3.7 (3.5-5.1) mmol/L Chloride 107 (98-107) mmol/L Carbon Dioxide 25.9 (21.0-32.0) mmol/L BUN 16 (7.0-18.0) mg/dL Creatinine 0.8 (0.6-1.0) mg/dL Est Cr Clr Drug Dosing 104.96 mL/min Estimated GFR (MDRD) > 60.0 ml/min Glucose 90 (74-106) mg/dL Calcium 9.9 (8.5-10.1) mg/dL Total Bilirubin 0.4 (0.2-1.0) mg/dL AST 14 L (15-37) IU/L ALT 31 (14-63) IU/L Alkaline Phosphatase 107 (46-116) U/L Total Protein 8.3 H (6.4-8.2) g/dL Albumin 4.5 (3.4-5.0) g/dL Globulin 3.8 (2.6-4.0) g/dL Albumin/Globulin Ratio 1.2 (0.9-1.6) Lipase 136 (73-393) U/L Urine Color YELLOW Urine Appearance CLEAR Urine pH 6.0 (5.0-8.0) Ur Specific [place] >= 1.030 (1.001-1.035) Urine Protein NEGATIVE (NEGATIVE) mg/dL Urine Glucose (UA) NEGATIVE (NEGATIVE) mg/dL Urine Ketones TRACE H (NEGATIVE) mg/dL Urine Occult Blood NEGATIVE (NEGATIVE) Urine Nitrite NEGATIVE (NEGATIVE) Urine Bilirubin NEGATIVE (NEGATIVE) Urine Urobilinogen 0.2 (<2.0) EU/dL Ur Leukocyte Esterase NEGATIVE (NEGATIVE) Urine RBC 0-1 (0-2/HPF) Urine WBC 0-1 (0-5/HPF) Ur Epithelial Cells OCCASIONAL (NONE-FEW) Urine Bacteria RARE (NEGATIVE) Urine HCG, Qual (NEGATIVE) 04/27/18 Range/Units 12:15 WBC (4.0-11.0) K/uL RBC (4.30-5.90) M/uL Hgb (12.0-16.0) g/dL Hct (36.0-46.0) % MCV (80.0-98.0) fL MCH (27.0-32.0) pg MCHC (31.0-37.0) g/dL RDW Std Deviation (28.0-62.0) fl RDW Coeff of [place] (11.0-15.0) % Plt Count (150-400) K/uL MPV (7.40-12.00) fL Neut % (Auto) (48.0-80.0) % Lymph % (Auto) (16.0-40.0) % [place] % (Auto) (0.0-15.0) % Eos % (Auto) (0.0-7.0) % Baso % (Auto) (0.0-1.5) % Neut # (Auto) (1.4-5.7) K/uL Lymph # (Auto) (0.6-2.4) K/uL [place] # (Auto) (0.0-0.8) K/uL Eos # (Auto) (0.0-0.7) K/uL Baso # (Auto) (0.0-0.1) K/uL Sodium (136-145) mmol/L Potassium (3.5-5.1) mmol/L Chloride (98-107) mmol/L Carbon Dioxide (21.0-32.0) mmol/L BUN (7.0-18.0) mg/dL Creatinine (0.6-1.0) mg/dL Est Cr Clr Drug Dosing mL/min Estimated GFR (MDRD) ml/min Glucose (74-106) mg/dL Calcium (8.5-10.1) mg/dL Total Bilirubin (0.2-1.0) mg/dL AST (15-37) IU/L ALT (14-63) IU/L Alkaline Phosphatase (46-116) U/L Total Protein (6.4-8.2) g/dL Albumin (3.4-5.0) g/dL Globulin (2.6-4.0) g/dL Albumin/Globulin Ratio (0.9-1.6) Lipase (73-393) U/L Urine Color Urine Appearance Urine pH (5.0-8.0) Ur Specific [place] (1.001-1.035) Urine Protein (NEGATIVE) mg/dL Urine Glucose (UA) (NEGATIVE) mg/dL Urine Ketones (NEGATIVE) mg/dL Urine Occult Blood (NEGATIVE) Urine Nitrite (NEGATIVE) Urine Bilirubin (NEGATIVE) Urine Urobilinogen (<2.0) EU/dL Ur Leukocyte Esterase (NEGATIVE) Urine RBC (0-2/HPF) Urine WBC (0-5/HPF) Ur Epithelial Cells (NONE-FEW) Urine Bacteria (NEGATIVE) Urine HCG, Qual NEGATIVE (NEGATIVE) Result Diagrams: 04/27/18 11:45 04/27/18 11:45 Consult PN Assessment/Plan Procedures: Procedures ASSAY THYROID STIM HORMONE (03/04/17) COMPLETE CBC AUTOMATED (04/13/17) CULTURE SCREEN ONLY (06/10/17) GLUCOSE TEST (04/13/17) URINE CULTURE/COLONY COUNT (11/30/16) VITAMIN B-12 (03/04/17) VITAMIN D 25 HYDROXY (05/11/17) (1) Acute abdomen SNOMED Code(s): 2109041 Code(s): R10.0 - ACUTE ABDOMEN Current Visit: Yes Problem List Initiated/Reviewed/Updated: Yes My Orders Last 24 Hours: My Active Orders 04/27/18 15:49 Resuscitation Status Routine 04/27/18 15:50 Patient Status [ADT] Routine Antiembolic Devices [RC] PER UNIT ROUTINE Insert Urinary Catheter [OM.PC] Timed Oxygen Therapy [RC] ASDIRECTED RT Incentive Spirometry [RC] Q1HWA Skin Preparation [RC] .PREOP Urinary Catheter Assessment [RC] ASDIRECTED Urinary Catheter Assessment [RC] ASDIRECTED Urinary Catheter Assessment [RC] ASDIRECTED Vital Signs [RC] PER UNIT ROUTINE Antiembolic Hose [OM.PC] Routine 04/27/18 16:00 Lactated Ringers @ 125 MLS/HR(1000ml) Lactated Ringers [Ringers, Lactated] 1, 000 ml IV ASDIRECTED 04/27/18 Dinner Nothing Per Oral Diet [DIET] Plan: CT scan has been personally reviewed and is consistent with the diagnosis of appendicitis. This is also confirmed by physical examination was significant right lower quadrant discomfort. Laparoscopic appendectomy, possible open appendectomy. Both operative procedures, along with the risks, including, but not limited to, bleeding, infection, pneumonia, deep venous thrombosis, pulmonary emboli, myocardial infarction, and adjacent organ injury have been reviewed with the patient who voices understanding, offers no questions and agrees to proceed.
[2018-04-27] MEDS ORDERED: Lactated Ringers 1,000 ML IV SCH ×2 (16:00→18:15)
[2018-04-27] MEDS ORDERED: ceFAZolin 1 GM Vial ONE (16:00)
[2018-04-27] MEDS ORDERED: Bupivacaine 0.5% 10 ML SDV ONE (16:00)
[2018-04-27] MEDS ORDERED: fentaNYL 100 MCG/2 ML SDV ONE (16:01)
[2018-04-27] MEDS ORDERED: HYDROmorphone 2 MG/ML Syringe ONE (16:01)
[2018-04-27] MEDS ORDERED: Midazolam 1 MG/ML 2 ML SDV ONE (16:01)
[2018-04-27] MEDS ORDERED: Propofol 200 MG/20 ML SDV ONE (16:01)
--- NOTE | 2018-04-27 16:08 | PCM.PREANE ---
Preanesthetic Assessment - Procedure Proposed Procedure: laparoscopic appendectomy - Anesthesia/Transfusion/Family Hx Anesthesia History: No Prior Anesthesia (Previous epidural - states "it was the hardest part of my pregancy") Family History of Anesthesia Reaction: No Transfusion History: No Prior Transfusion(s) - Review of Systems General: No Symptoms Pulmonary: No Symptoms Cardiovascular: No Symptoms Gastrointestinal: Abdominal Pain Other: Reports: None, Sinus Problem, Depression - Physical Assessment O2 Sat by Pulse Oximetry: 98 Respiratory Rate: 18 Vital Signs: Last Vital Signs Temp 97.4 F 04/27/18 14:57 Pulse 66 04/27/18 14:57 Resp 18 04/27/18 14:57 BP 96/65 04/27/18 14:57 Pulse Ox 98 04/27/18 14:57 Height: 5 ft 8 in Weight: 63.503 kg ASA Class: 2E Mental Status: Alert & Oriented x3 Airway Class: Mallampati = 1 Dentition: Reports: Normal Dentition ROM/Head Extension: Full Lungs: Clear to Auscultation Cardiovascular: Regular Rate - Lab Values: Laboratory Last Values WBC 6.43 K/uL (4.0-11.0) 04/27/18 11:45 RBC 4.88 M/uL (4.30-5.90) 04/27/18 11:45 Hgb 14.8 g/dL (12.0-16.0) 04/27/18 11:45 Hct 43.0 % (36.0-46.0) 04/27/18 11:45 MCV 88.1 fL (80.0-98.0) 04/27/18 11:45 MCH 30.3 pg (27.0-32.0) 04/27/18 11:45 MCHC 34.4 g/dL (31.0-37.0) 04/27/18 11:45 RDW Std Deviation 42.7 fl (28.0-62.0) 04/27/18 11:45 RDW Coeff of Fermín 13 % (11.0-15.0) 04/27/18 11:45 Plt Count 194 K/uL (150-400) 04/27/18 11:45 MPV 9.30 fL (7.40-12.00) 04/27/18 11:45 Neut % (Auto) 62.2 % (48.0-80.0) 04/27/18 11:45 Lymph % (Auto) 24.3 % (16.0-40.0) 04/27/18 11:45 Ray % (Auto) 8.2 % (0.0-15.0) 04/27/18 11:45 Eos % (Auto) 5.0 % (0.0-7.0) 04/27/18 11:45 Baso % (Auto) 0.3 % (0.0-1.5) 04/27/18 11:45 Neut # (Auto) 4.0 K/uL (1.4-5.7) 04/27/18 11:45 Lymph # (Auto) 1.6 K/uL (0.6-2.4) 04/27/18 11:45 Ray # (Auto) 0.5 K/uL (0.0-0.8) 04/27/18 11:45 Eos # (Auto) 0.3 K/uL (0.0-0.7) 04/27/18 11:45 Baso # (Auto) 0.0 K/uL (0.0-0.1) 04/27/18 11:45 Sodium 144 mmol/L (136-145) 04/27/18 11:45 Potassium 3.7 mmol/L (3.5-5.1) 04/27/18 11:45 Chloride 107 mmol/L (98-107) 04/27/18 11:45 Carbon Dioxide 25.9 mmol/L (21.0-32.0) 04/27/18 11:45 BUN 16 mg/dL (7.0-18.0) 04/27/18 11:45 Creatinine 0.8 mg/dL (0.6-1.0) 04/27/18 11:45 Est Cr Clr Drug Dosing 104.96 mL/min 04/27/18 11:45 Estimated GFR (MDRD) > 60.0 ml/min 04/27/18 11:45 Glucose 90 mg/dL (74-106) 04/27/18 11:45 Calcium 9.9 mg/dL (8.5-10.1) 04/27/18 11:45 Total Bilirubin 0.4 mg/dL (0.2-1.0) 04/27/18 11:45 AST 14 IU/L (15-37) L 04/27/18 11:45 ALT 31 IU/L (14-63) 04/27/18 11:45 Alkaline Phosphatase 107 U/L (46-116) 04/27/18 11:45 Total Protein 8.3 g/dL (6.4-8.2) H 04/27/18 11:45 Albumin 4.5 g/dL (3.4-5.0) 04/27/18 11:45 Globulin 3.8 g/dL (2.6-4.0) 04/27/18 11:45 Albumin/Globulin Ratio 1.2 (0.9-1.6) 04/27/18 11:45 Lipase 136 U/L (73-393) 04/27/18 11:45 Urine Color YELLOW 04/27/18 12:15 Urine Appearance CLEAR 04/27/18 12:15 Urine pH 6.0 (5.0-8.0) 04/27/18 12:15 Ur Specific [place] >= 1.030 (1.001-1.035) 04/27/18 12:15 Urine Protein NEGATIVE mg/dL (NEGATIVE) 04/27/18 12:15 Urine Glucose (UA) NEGATIVE mg/dL (NEGATIVE) 04/27/18 12:15 Urine Ketones TRACE mg/dL (NEGATIVE) H 04/27/18 12:15 Urine Occult Blood NEGATIVE (NEGATIVE) 04/27/18 12:15 Urine Nitrite NEGATIVE (NEGATIVE) 04/27/18 12:15 Urine Bilirubin NEGATIVE (NEGATIVE) 04/27/18 12:15 Urine Urobilinogen 0.2 EU/dL (<2.0) 04/27/18 12:15 Ur Leukocyte Esterase NEGATIVE (NEGATIVE) 04/27/18 12:15 Urine RBC 0-1 (0-2/HPF) 04/27/18 12:15 Urine WBC 0-1 (0-5/HPF) 04/27/18 12:15 Ur Epithelial Cells OCCASIONAL (NONE-FEW) 04/27/18 12:15 Urine Bacteria RARE (NEGATIVE) 04/27/18 12:15 Urine HCG, Qual NEGATIVE (NEGATIVE) 04/27/18 12:15 - Allergies Allergies/Adverse Reactions: Allergies Allergy/AdvReac Type Severity Reaction Status Date / Time No Known Allergies Allergy Verified 04/27/18 11:47 - Blood Blood Available: No - Acknowledgements Anesthesia Type Planned: General Anesthesia Pt an Appropriate Candidate for the Planned Anesthesia: Yes Alternatives and Risks of Anesthesia Discussed w Pt/Guardian: Yes Pt/Guardian Understands and Agrees with Anesthesia Plan: Yes PreAnesthesia Questionnaire - Past Health History Medical/Surgical History: Denies 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 The youngest one is 10 months old. - SUBSTANCE USE Smoking Status *Q: Never Smoker Recreational Drug Use History: No - HOME MEDS Home Medications: Home Meds Norethindrone 1 tab DAILY 04/27/18 [History] - CURRENT (IN HOUSE) MEDS Current Meds: Current Medications Lactated Ringer's (Ringers, Lactated) 1,000 mls @ 125 mls/hr IV ASDIRECTED KASIA Sodium Chloride (Saline Flush) 10 ml FLUSH ASDIRECTED PRN PRN Reason: Keep Vein Open Sodium Chloride (Saline Flush) 2.5 ml FLUSH ASDIRECTED PRN PRN Reason: Keep Vein Open Discontinued Medications Bupivacaine HCl (Sensorcaine-Mpf 0.5%) Confirm Administered Dose 10 ml .ROUTE .STK-MED ONE Stop: 04/27/18 16:01 Cefazolin Sodium (Ancef) Confirm Administered Dose 1 gm .ROUTE .STK-MED ONE Stop: 04/27/18 16:01 Fentanyl (Sublimaze) Confirm Administered Dose 100 mcg .ROUTE .STK-MED ONE Stop: 04/27/18 16:02 Hydromorphone HCl (Dilaudid) Confirm Administered Dose 2 mg .ROUTE .STK-MED ONE Stop: 04/27/18 16:02 Sodium Chloride (Normal Saline) 1,000 mls @ 999 mls/hr IV .Bolus ONE Stop: 04/27/18 12:32 Last Admin: 04/27/18 11:58 Dose: 999 mls/hr Piperacillin Sod/Tazobactam (Sod 3.375 gm/ Sodium Chloride) 50 mls @ 100 mls/ hr IV ONETIME ONE Stop: 04/27/18 14:30 Last Admin: 04/27/18 14:23 Dose: 100 mls/hr Iopamidol (Isovue Multipack-370 (76%)) 100 ml IVPUSH ONETIME STA Stop: 04/27/18 13:11 Last Admin: 04/27/18 13:11 Dose: 100 ml Ketorolac Tromethamine (Toradol) 30 mg IVPUSH ONETIME ONE Stop: 04/27/18 12:27 Last Admin: 04/27/18 12:37 Dose: 30 mg Midazolam HCl (Versed 1 Mg/Ml) Confirm Administered Dose 2 mg .ROUTE .STK-MED ONE Stop: 04/27/18 16:02 Propofol (Diprivan 20 Ml) Confirm Administered Dose 200 mg .ROUTE .STK-MED ONE Stop: 04/27/18 16:02
[2018-04-27] MEDS ORDERED: Succinylcholine 200 MG/10 ML MDV ONE (16:10)
[2018-04-27] MEDS ORDERED: Ondansetron 4 MG/2 ML SDV ONE (16:10)
[2018-04-27] MEDS ORDERED: Glycopyrrolate 0.2 MG/ML SDV ONE (16:10)
[2018-04-27] MEDS ORDERED: Rocuronium 10 MG/ML 10 ML Syringe ONE (16:10)
[2018-04-27] MEDS ORDERED: Neostigmine Methylsulfate 1 MG/ML 5 ML Syringe ONE (16:10)
[2018-04-27] MEDS ORDERED: Dexamethasone 4 MG/ML 5 ML MDV ONE (16:10)
[2018-04-27] MEDS ORDERED: Meperidine PF 25 MG/ML Syringe IVPUSH ONE (17:06)
[2018-04-27] MEDS ORDERED: HYDROmorphone 2 MG/ML Syringe IVPUSH ONE (17:06)
[2018-04-27] MEDS ORDERED: fentaNYL 100 MCG/2 ML SDV IVPUSH PRN (17:06)
[2018-04-27] MEDS ORDERED: Promethazine 25 MG/ML SDV IM ONE (17:06)
[2018-04-27] MEDS ORDERED: Ondansetron 4 MG/2 ML SDV IVPUSH PRN (18:03)
[2018-04-27] MEDS ORDERED: Acetaminophen 325 MG Tab PO PRN (18:03)
[2018-04-27] MEDS ORDERED: Morphine 10 MG/ML Syringe IVPUSH PRN (18:03)
[2018-04-27] MEDS ORDERED: Meperidine PF 25 MG/ML Syringe IV ONE (18:05)
[2018-04-27] MEDS ORDERED: Acetaminophen 1,000 MG in Premix Bag 1 BAG IV ONE (18:05)
--- NOTE | 2018-04-27 18:09 | PCM.OPNOTE ---
- General Post-Op/Procedure Note Date of Surgery/Procedure: 04/27/18 Operative Procedure(s): Laparoscopic appendectomy Pre Op Diagnosis: acute abdomen Post-Op Diagnosis: acute appendicitis Anesthesia Technique: General ET Tube (ASA IIE) Primary Surgeon: Douglas Tao Sheet Folder: Zulema Padgett Fluid Replacement, Intraop: 1,000 Output, Urine Amount: 350 EBL in mLs: 10 Condition: Serious Free Text/Narrative:: Intake & Output 04/27/18 04/27/18 04/27/18 03:59 11:59 19:59 Output Total 350 Balance -350 DICTATION 914983 CPT CODE 40035
--- NOTE | 2018-04-27 19:13 | OR ---
SURGEON: Douglas Tao M.D. DATE OF PROCEDURE: 04/27/2018 OPERATION PERFORMED: Laparoscopic appendectomy. [employer] STATION: [employer] student. ANESTHESIA: General endotracheal. ASA CLASSIFICATION: IIE. PREOPERATIVE DIAGNOSIS: Acute abdomen. POSTOPERATIVE DIAGNOSIS: Acute appendicitis. ESTIMATED BLOOD LOSS: 10 mL. INTRAOPERATIVE FLUID REPLACEMENT: 1000 mL of crystalloid. INTRAOPERATIVE URINE OUTPUT: 350 mL. DESCRIPTION OF PROCEDURE: The patient was taken to the operating room and placed on the operating table in the supine position. Time-out was called for appropriate identification of the patient and procedure. Thigh-high TEDs and sequential compression boots were placed. Following satisfactory attainment of general endotracheal anesthesia, a La catheter was placed in the patient's urinary bladder. The abdomen was prepped with DuraPrep solution and sterile drapes were applied. The skin above the umbilicus was infiltrated with 0.5% Marcaine solution. The skin incision was made and deepened through the subcutaneous tissue. The Veress needle was introduced into the peritoneal cavity. The saline drop test was positive. Carbon dioxide pneumoperitoneum was established with the release set at 13 cm of water. Once we had a satisfactory pneumoperitoneum, a 5 mm camera and port were placed through the supraumbilical incision. The patient was now positioned with her feet down and rolled to the left. Under camera vision, 12 mm suprapubic and 5 mm left lower quadrant ports were placed. Each incision had preemptively been infiltrated with 0.5% Marcaine solution. Dissection was now carried into the right lower quadrant where the appendix was identified. The mesoappendix was taken down with the use of the Harmonic scalpel. Once that was accomplished, the base of the appendix was ligated with an Endo-LUC blue load stapler. The wound was inspected for hemostasis. No bleeding was noted and the appendiceal stump closure appeared secure. The right lower quadrant was then irrigated with several 100 mL of saline and all fluid was aspirated. The appendix had been placed in an EndoCatch and this was now retrieved through the suprapubic port removing the port at the same time. Under camera vision, the 5 mm left lower quadrant port was removed and finally, the supraumbilical camera and port were removed. The wound was inspected for hemostasis and no bleeding was noted. The supraumbilical and suprapubic incisions were closed in 2 layers approximating the subcutaneous tissue with 3-0 Vicryl, and the skin with subcuticular 4-0 Monocryl. The left lower quadrant port was closed with subcuticular 4-0 Monocryl. All incisions were Steri-Stripped and dressed with sterile Tegaderm pads. Sponge, needle, and instrument counts were all correct. La catheter was removed prior to emergence from anesthesia. Following emergence from anesthesia and extubation, the patient was taken to recovery room in stable condition. QUETA BROUSSARD /[id number]
[2018-04-27] MEDS: Acetaminophen/HYDROcodone 325-5 MG Tab PO PRN (20:00)
[2018-04-27] MEDS: cefOXitin 1 GM in Premix Bag 1 BAG IV SCH (20:02)
[2018-04-28] MEDS: Acetaminophen/HYDROcodone 325-5 MG Tab PO PRN ×3 (02:10→12:42)
[2018-04-28] MEDS: cefOXitin 1 GM in Premix Bag 1 BAG IV SCH (05:30)
--- NOTE | 2018-04-28 09:42 | PCM.SURGPN ---
- General Info Date of Service: 04/28/18 POD#: 1 Admission Diagnosis/Problem: Acute appendicitis Functional Status: Reports: Pain Controlled, Tolerating Diet, Ambulating, Urinating - Review of Systems General: Denies: Fever, Chills HEENT: Reports: No Symptoms Pulmonary: Denies: Shortness of Breath, Wheezing Cardiovascular: Reports: No Symptoms Gastrointestinal: Reports: Abdominal Pain. Denies: Constipation, Decreased Appetite, Diarrhea, Nausea, Vomiting Genitourinary: Denies: Dysuria, Frequency, Burning Musculoskeletal: Reports: No Symptoms Skin: Denies: Cyanosis, Jaundice Neurological: Reports: No Symptoms Psychiatric: Reports: No Symptoms - Patient Data Vitals - Most Recent: Last Vital Signs Temp 98.5 F 04/28/18 07:30 Pulse 65 04/28/18 07:30 Resp 16 04/28/18 09:37 BP 93/50 L 04/28/18 07:30 Pulse Ox 95 04/28/18 07:30 Weight - Most Recent: 140 lb I&O - Last 24 Hours: Intake & Output 04/27/18 04/28/18 04/28/18 19:59 03:59 11:59 Intake Total 2200 2400 Output Total 700 1000 Balance 1500 1400 Lab Results Last 24 Hrs: Laboratory Results - last 24 hr 04/27/18 04/27/18 04/27/18 Range/Units 11:45 11:45 12:15 WBC 6.43 (4.0-11.0) K/uL RBC 4.88 (4.30-5.90) M/uL Hgb 14.8 (12.0-16.0) g/dL Hct 43.0 (36.0-46.0) % MCV 88.1 (80.0-98.0) fL MCH 30.3 (27.0-32.0) pg MCHC 34.4 (31.0-37.0) g/dL RDW Std Deviation 42.7 (28.0-62.0) fl RDW Coeff of Fermín 13 (11.0-15.0) % Plt Count 194 (150-400) K/uL MPV 9.30 (7.40-12.00) fL Neut % (Auto) 62.2 (48.0-80.0) % Lymph % (Auto) 24.3 (16.0-40.0) % [place] % (Auto) 8.2 (0.0-15.0) % Eos % (Auto) 5.0 (0.0-7.0) % Baso % (Auto) 0.3 (0.0-1.5) % Neut # (Auto) 4.0 (1.4-5.7) K/uL Lymph # (Auto) 1.6 (0.6-2.4) K/uL [place] # (Auto) 0.5 (0.0-0.8) K/uL Eos # (Auto) 0.3 (0.0-0.7) K/uL Baso # (Auto) 0.0 (0.0-0.1) K/uL Sodium 144 (136-145) mmol/L Potassium 3.7 (3.5-5.1) mmol/L Chloride 107 (98-107) mmol/L Carbon Dioxide 25.9 (21.0-32.0) mmol/L BUN 16 (7.0-18.0) mg/dL Creatinine 0.8 (0.6-1.0) mg/dL Est Cr Clr Drug Dosing 104.96 mL/min Estimated GFR (MDRD) > 60.0 ml/min Glucose 90 (74-106) mg/dL Calcium 9.9 (8.5-10.1) mg/dL Total Bilirubin 0.4 (0.2-1.0) mg/dL AST 14 L (15-37) IU/L ALT 31 (14-63) IU/L Alkaline Phosphatase 107 (46-116) U/L Total Protein 8.3 H (6.4-8.2) g/dL Albumin 4.5 (3.4-5.0) g/dL Globulin 3.8 (2.6-4.0) g/dL Albumin/Globulin Ratio 1.2 (0.9-1.6) Lipase 136 (73-393) U/L Urine Color YELLOW Urine Appearance CLEAR Urine pH 6.0 (5.0-8.0) Ur Specific [place] >= 1.030 (1.001-1.035) Urine Protein NEGATIVE (NEGATIVE) mg/dL Urine Glucose (UA) NEGATIVE (NEGATIVE) mg/dL Urine Ketones TRACE H (NEGATIVE) mg/dL Urine Occult Blood NEGATIVE (NEGATIVE) Urine Nitrite NEGATIVE (NEGATIVE) Urine Bilirubin NEGATIVE (NEGATIVE) Urine Urobilinogen 0.2 (<2.0) EU/dL Ur Leukocyte Esterase NEGATIVE (NEGATIVE) Urine RBC 0-1 (0-2/HPF) Urine WBC 0-1 (0-5/HPF) Ur Epithelial Cells OCCASIONAL (NONE-FEW) Urine Bacteria RARE (NEGATIVE) Urine HCG, Qual (NEGATIVE) 04/27/18 Range/Units 12:15 WBC (4.0-11.0) K/uL RBC (4.30-5.90) M/uL Hgb (12.0-16.0) g/dL Hct (36.0-46.0) % MCV (80.0-98.0) fL MCH (27.0-32.0) pg MCHC (31.0-37.0) g/dL RDW Std Deviation (28.0-62.0) fl RDW Coeff of Fermín (11.0-15.0) % Plt Count (150-400) K/uL MPV (7.40-12.00) fL Neut % (Auto) (48.0-80.0) % Lymph % (Auto) (16.0-40.0) % [place] % (Auto) (0.0-15.0) % Eos % (Auto) (0.0-7.0) % Baso % (Auto) (0.0-1.5) % Neut # (Auto) (1.4-5.7) K/uL Lymph # (Auto) (0.6-2.4) K/uL [place] # (Auto) (0.0-0.8) K/uL Eos # (Auto) (0.0-0.7) K/uL Baso # (Auto) (0.0-0.1) K/uL Sodium (136-145) mmol/L Potassium (3.5-5.1) mmol/L Chloride (98-107) mmol/L Carbon Dioxide (21.0-32.0) mmol/L BUN (7.0-18.0) mg/dL Creatinine (0.6-1.0) mg/dL Est Cr Clr Drug Dosing mL/min Estimated GFR (MDRD) ml/min Glucose (74-106) mg/dL Calcium (8.5-10.1) mg/dL Total Bilirubin (0.2-1.0) mg/dL AST (15-37) IU/L ALT (14-63) IU/L Alkaline Phosphatase (46-116) U/L Total Protein (6.4-8.2) g/dL Albumin (3.4-5.0) g/dL Globulin (2.6-4.0) g/dL Albumin/Globulin Ratio (0.9-1.6) Lipase (73-393) U/L Urine Color Urine Appearance Urine pH (5.0-8.0) Ur Specific [place] (1.001-1.035) Urine Protein (NEGATIVE) mg/dL Urine Glucose (UA) (NEGATIVE) mg/dL Urine Ketones (NEGATIVE) mg/dL Urine Occult Blood (NEGATIVE) Urine Nitrite (NEGATIVE) Urine Bilirubin (NEGATIVE) Urine Urobilinogen (<2.0) EU/dL Ur Leukocyte Esterase (NEGATIVE) Urine RBC (0-2/HPF) Urine WBC (0-5/HPF) Ur Epithelial Cells (NONE-FEW) Urine Bacteria (NEGATIVE) Urine HCG, Qual NEGATIVE (NEGATIVE) Med Orders - Current: Current Medications Acetaminophen (Tylenol) 325 mg PO Q4H PRN PRN Reason: Fever Greater Than 101 Last Admin: 04/27/18 23:11 Dose: 325 mg Hydrocodone Bitart/Acetaminophen (Myrtle 325-5 Mg) 1 - 2 tab PO Q4H PRN PRN Reason: Pain (moderate 4-6) Last Admin: 04/28/18 07:38 Dose: 2 tab Fentanyl (Sublimaze) 50 mcg IVPUSH Q5M PRN PRN Reason: Pain (severe 7-10) Stop: 04/28/18 17:06 Lactated Ringer's (Ringers, Lactated) 1,000 mls @ 125 mls/hr IV ASD[facility]RECTED [facility] Lactated Ringer's (Ringers, Lactated) 1,000 mls @ 125 mls/hr IV ASDIRECTED [facility] Last Admin: 04/28/18 00:30 Dose: 125 mls/hr Morphine Sulfate (Morphine) 0 mg IVPUSH Q1H PRN PRN Reason: Pain (severe 7-10) Ondansetron HCl (Zofran) 4 mg IVPUSH Q6H PRN PRN Reason: Nausea/Vomiting Sodium Chloride (Saline Flush) 10 ml FLUSH ASDIRECTED PRN PRN Reason: Keep Vein Open Sodium Chloride (Saline Flush) 2.5 ml FLUSH ASDIRECTED PRN PRN Reason: Keep Vein Open Discontinued Medications Bupivacaine HCl (Sensorcaine-Mpf 0.5%) Confirm Administered Dose 10 ml .ROUTE .STK-MED ONE Stop: 04/27/18 16:01 Cefazolin Sodium (Ancef) Confirm Administered Dose 1 gm .ROUTE .STK-MED ONE Stop: 04/27/18 16:01 Dexamethasone (Dexamethasone) Confirm Administered Dose 20 mg .ROUTE .STK-MED ONE Stop: 04/27/18 16:11 Fentanyl (Sublimaze) Confirm Administered Dose 100 mcg .ROUTE .STK-MED ONE Stop: 04/27/18 16:02 Glycopyrrolate (Robinul) Confirm Administered Dose 0.4 mg .ROUTE .STK-MED ONE Stop: 04/27/18 16:11 Hydromorphone HCl (Dilaudid) Confirm Administered Dose 2 mg .ROUTE .STK-MED ONE Stop: 04/27/18 16:02 Hydromorphone HCl (Dilaudid) 2 mg IVPUSH ONETIME ONE Stop: 04/27/18 17:07 Last Admin: 04/27/18 19:09 Dose: Not Given Sodium Chloride (Normal Saline) 1,000 mls @ 999 mls/hr IV .Bolus ONE Stop: 04/27/18 12:32 Last Admin: 04/27/18 11:58 Dose: 999 mls/hr Piperacillin Sod/Tazobactam (Sod 3.375 gm/ Sodium Chloride) 50 mls @ 100 mls/ hr IV ONETIME ONE Stop: 04/27/18 14:30 Last Admin: 04/27/18 14:23 Dose: 100 mls/hr Lidocaine HCl (Xylocaine-Mpf 1%) Confirm Administered Dose 5 mls @ as directed .ROUTE .STK-MED ONE Stop: 04/27/18 16:11 Acetaminophen (Ofirmev) Confirm Administered Dose 100 mls @ as directed IV .STK- MED ONE Stop: 04/27/18 17:59 Acetaminophen 1,000 mg/ Premix 100 mls @ 400 mls/hr IV NOW ONE Stop: 04/27/18 18:19 Last Admin: 04/27/18 18:10 Dose: 400 mls/hr Cefoxitin Sodium 1 gm/ Premix 50 mls @ 100 mls/hr IV Q8H KASIA Stop: 04/28/18 05:29 Last Admin: 04/28/18 05:30 Dose: 100 mls/hr Iopamidol (Isovue Multipack-370 (76%)) 100 ml IVPUSH ONETIME STA Stop: 04/27/18 13:11 Last Admin: 04/27/18 13:11 Dose: 100 ml Ketorolac Tromethamine (Toradol) 30 mg IVPUSH ONETIME ONE Stop: 04/27/18 12:27 Last Admin: 04/27/18 12:37 Dose: 30 mg Meperidine HCl (Demerol) 12.5 mg IVPUSH ONETIME ONE Stop: 04/27/18 17:07 Last Admin: 04/27/18 18:06 Dose: 12.5 mg Meperidine HCl (Demerol) 12.5 mg IV ONETIME ONE Stop: 04/27/18 18:06 Last Admin: 04/27/18 19:09 Dose: Not Given Midazolam HCl (Versed 1 Mg/Ml) Confirm Administered Dose 2 mg .ROUTE .STK-MED ONE Stop: 04/27/18 16:02 Neostigmine Methylsulfate (Neostigmine) Confirm Administered Dose 5 mg .ROUTE .STK-MED ONE Stop: 04/27/18 16:11 Ondansetron HCl (Zofran) Confirm Administered Dose 4 mg .ROUTE .STK-MED ONE Stop: 04/27/18 16:11 Promethazine HCl (Phenergan) 12.5 mg IM ONETIME ONE Stop: 04/27/18 17:07 Last Admin: 04/27/18 19:09 Dose: Not Given Propofol (Diprivan 20 Ml) Confirm Administered Dose 200 mg .ROUTE .STK-MED ONE Stop: 04/27/18 16:02 Rocuronium [place] (Zemuron) Confirm Administered Dose 100 mg .ROUTE .STK-MED ONE Stop: 04/27/18 16:11 Succinylcholine Chloride (Quelicin) Confirm Administered Dose 200 mg .ROUTE .STK -MED ONE Stop: 04/27/18 16:11 - Exam Wound/Incisions: Dressing Dry and Intact General: Alert, Oriented, Cooperative, No Acute Distress HEENT: Pupils Equal, Pupils Reactive Neck: Supple, Trachea Midline Lungs: Clear to Auscultation, Normal Respiratory Effort Cardiovascular: Regular Rate, Regular Rhythm. No: Tachycardia, Murmurs GI/Abdominal Exam: Normal Bowel Sounds, Soft, Non-Tender, No Distention, No Mass Extremities: Normal Inspection Skin: Warm, Dry, Intact Neurological: No New Focal Deficit Psy/Mental Status: Alert, Normal Affect, Normal Mood - Problem List & Annotations (1) Acute abdomen SNOMED Code(s): 1105879 Code(s): R10.0 - ACUTE ABDOMEN Status: Acute Current Visit: Yes (2) Acute appendicitis SNOMED Code(s): 90407248 Code(s): K35.80 - UNSPECIFIED ACUTE APPENDICITIS Status: Acute Current Visit: Yes Qualifiers: Acute appendicitis type: with localized peritonitis Qualified Code(s): K35.80 - Unspecified acute appendicitis - Problem List Review Problem List Initiated/Reviewed/Updated: Yes - My Orders Last 24 Hours: Active Orders 24 hr Category Date Time Status Patient Status [ADT] Routine ADT 04/27/18 15:50 Active Antiembolic Devices [RC] PER UNIT ROUTINE Care 04/27/18 15:50 Active Insert Urinary Catheter [OM.PC] Timed Care 04/27/18 15:50 Ordered May Shower [RC] ASDIRECTED Care 04/28/18 08:54 Active Oxygen Therapy [RC] PRN Care 04/27/18 18:03 Active Pulse Oximetry [RC] ASDIRECTED Care 04/27/18 18:03 Active RT Incentive Spirometry [RC] Q1HWA Care 04/27/18 18:03 Active Up ad Adrienne [RC] PER UNIT ROUTINE Care 04/27/18 18:03 Active Vital Signs [RC] Q4H Care 04/27/18 18:03 Active Regular Diet [DIET] Diet 04/28/18 Breakfast Active Acetaminophen [Tylenol] Med 04/27/18 18:03 Active 325 mg PO Q4H PRN Acetaminophen/HYDROcodone [Myrtle 325-5 MG] Med 04/27/18 18:03 Active 1 - 2 tab PO Q4H PRN Lactated Ringers [Ringers, Lactated] 1,000 ml Med 04/27/18 16:00 Active IV ASDIRECTED Lactated Ringers [Ringers, Lactated] 1,000 ml Med 04/27/18 18:15 Active IV ASDIRECTED Morphine Med 04/27/18 18:03 Active See Dose Instructions IVPUSH Q1H PRN Ondansetron [Zofran] Med 04/27/18 18:03 Active 4 mg IVPUSH Q6H PRN Sodium Chloride 0.9% [Saline Flush] Med 04/27/18 11:32 Active 10 ml FLUSH ASDIRECTED PRN Sodium Chloride 0.9% [Saline Flush] Med 04/27/18 11:32 Active 2.5 ml FLUSH ASDIRECTED PRN fentaNYL [Sublimaze] Med 04/27/18 17:06 Active 50 mcg IVPUSH Q5M PRN Antiembolic Hose [OM.PC] Routine Oth 04/27/18 15:50 Ordered Saline Lock Insert [OM.PC] Stat Oth 04/27/18 11:32 Ordered Resuscitation Status Routine Resus Stat 04/27/18 15:49 Ordered Medication Orders Acetaminophen (Tylenol) 325 mg PO Q4H PRN PRN Reason: Fever Greater Than 101 Last Admin: 04/27/18 23:11 Dose: 325 mg Hydrocodone Bitart/Acetaminophen ([place]rt[place] 325-5 Mg) 1 - 2 tab PO Q4H PRN PRN Reason: Pain (moderate 4-6) Last Admin: 04/28/18 07:38 Dose: 2 tab Admin: 04/28/18 02:10 Dose: 2 tab Admin: 04/27/18 20:00 Dose: 2 tab Fentanyl (Sublimaze) 50 mcg IVPUSH Q5M PRN PRN Reason: Pain (severe 7-10) Stop: 04/28/18 17:06 Lactated Ringer's (Ringers, Lactated) 1,000 mls @ 125 mls/hr IV ASDIRECTED KASIA Lactated Ringer's (Ringers, Lactated) 1,000 mls @ 125 mls/hr IV ASDIRECTED KASIA Last Admin: 04/28/18 00:30 Dose: 125 mls/hr Morphine Sulfate (Morphine) 0 mg IVPUSH Q1H PRN PRN Reason: Pain (severe 7-10) Ondansetron HCl (Zofran) 4 mg IVPUSH Q6H PRN PRN Reason: Nausea/Vomiting Sodium Chloride (Saline Flush) 10 ml FLUSH ASDIRECTED PRN PRN Reason: Keep Vein Open Sodium Chloride (Saline Flush) 2.5 ml FLUSH ASDIRECTED PRN PRN Reason: Keep Vein Open - Assessment Assessment (Free Text/Narrative):: Patient is improved. Still having some right lower quadrant discomfort. - Plan Plan (Free Text/Narrative):: Increase activity and diet. Probable discharge later today.
--- NOTE | 2018-04-28 15:42 | PCM.DCSUM1 ---
Discharge Summary - Hospital Course Free Text/Narrative:: 27 y/o female admitted with acute appendicitis. Laparoscopic appendectomy on 04/27. Tolerated surgery well. No evidence of rupture. HPI Initial Comments: See H&P - Discharge Data Discharge Date: 04/28/18 Discharge Disposition: Home, Self-Care 01 Condition: Serious - Discharge Diagnosis/Problem(s) (1) Acute abdomen SNOMED Code(s): 8560539 ICD Code: R10.0 - ACUTE ABDOMEN Status: Acute Current Visit: Yes (2) Acute appendicitis SNOMED Code(s): 11872659 ICD Code: K35.80 - UNSPECIFIED ACUTE APPENDICITIS Status: Acute Current Visit: Yes Qualifiers: Acute appendicitis type: with localized peritonitis Qualified Code(s): K35.80 - Unspecified acute appendicitis - Patient Summary/Data Operative Procedure(s) Performed: Laparoscopic appendectomy - Patient Instructions Diet: Usual Diet as Tolerated Activity: No Lifting Over 25 Pounds Driving: Do Not Drive Showering/Bathing: May Shower Wound/Incision Care: Keep Operative Site/Wound Site Clean and Dry Notify Provider of: Fever, Increased Pain, Swelling and Redness, Drainage, Nausea and/or Vomiting - Discharge Plan Prescriptions/Med Rec: Acetaminophen/HYDROcodone [[place] 325-5 MG] 1 tab PO Q6H PRN 3 Days #10 tablet PRN Reason: Pain (Moderate 4-6) Home Medications: Home Meds Norethindrone 1 tab DAILY 04/27/18 [History] Acetaminophen/HYDROcodone [[place] 325-5 MG] 1 tab PO Q6H PRN 3 Days #10 tablet [Rx] Patient Handouts: Acetaminophen; Hydrocodone tablets or capsules, Laparoscopic Appendectomy, Adult, Care After, [id number] Referrals: Douglas Tao MD [Physician] - 05/16/18 10:15 am - Discharge Summary/Plan Comment DC Time >30 min.: No - General Info Date of Service: 04/28/18 Admission Dx/Problem (Free Text: Admission Diagnosis/Problem Admission Diagnosis/Problem Appendicitis Patient is a 27-year-old female who presents to the emergency room today with about a 4 day history of abdominal pain. Pain initially began on Tuesday. It was primarily epigastric in nature with occasional nausea and vomiting. Over the last 24-36 hours. It has migrated to the right lower quadrant. Patient does note some discomfort on ambulation. No significant change in bowel habits. No rectal bleeding. Functional Status: Reports: Pain Controlled, Tolerating Diet, Ambulating, Urinating - Review of Systems General: Denies: Fever, Weakness, Fatigue, Malaise HEENT: Reports: No Symptoms Pulmonary: Denies: Shortness of Breath, Cough Cardiovascular: Denies: Chest Pain Gastrointestinal: Reports: Abdominal Pain (mild rlq), Flatus. Denies: Constipation, Decreased Appetite, Diarrhea, Difficulty Swallowing, Hematochezia , Melena, Nausea, Vomiting Genitourinary: Denies: Dysuria, Frequency, Burning Musculoskeletal: Denies: Neck Pain, Shoulder Pain Skin: Denies: Cyanosis, Jaundice Neurological: Denies: Confusion Psychiatric: Denies: Confusion, Depression, Anxiety - Patient Data Vitals - Most Recent: Last Vital Signs Temp 97.9 F 04/28/18 12:00 Pulse 78 04/28/18 12:00 Resp 16 04/28/18 12:00 BP 109/54 L 04/28/18 12:00 Pulse Ox 97 04/28/18 12:00 Weight - Most Recent: 140 lb I&O - Last 24 hours: Intake & Output 04/28/18 04/28/18 04/28/18 03:59 11:59 19:59 Intake Total 2400 1060 Output Total 1000 1400 Balance 1400 -340 Med Orders - Current: Current Medications Acetaminophen (Tylenol) 325 mg PO Q4H PRN PRN Reason: Fever Greater Than 101 Last Admin: 04/27/18 23:11 Dose: 325 mg Hydrocodone Bitart/Acetaminophen ([place] 325-5 Mg) 1 - 2 tab PO Q4H PRN PRN Reason: Pain (moderate 4-6) Last Admin: 04/28/18 12:42 Dose: 2 tab Fentanyl (Sublimaze) 50 mcg IVPUSH Q5M PRN PRN Reason: Pain (severe 7-10) Stop: 04/28/18 17:06 Lactated Ringer's (Ringers, Lactated) 1,000 mls @ 125 mls/hr IV ASDIRECTED KASIA Lactated Ringer's (Ringers, Lactated) 1,000 mls @ 125 mls/hr IV ASDIRECTED KASIA Last Admin: 04/28/18 00:30 Dose: 125 mls/hr Morphine Sulfate (Morphine) 0 mg IVPUSH Q1H PRN PRN Reason: Pain (severe 7-10) Ondansetron HCl (Zofran) 4 mg IVPUSH Q6H PRN PRN Reason: Nausea/Vomiting Sodium Chloride (Saline Flush) 10 ml FLUSH ASDIRECTED PRN PRN Reason: Keep Vein Open Sodium Chloride (Saline Flush) 2.5 ml FLUSH ASDIRECTED PRN PRN Reason: Keep Vein Open Discontinued Medications Bupivacaine HCl (Sensorcaine-Mpf 0.5%) Confirm Administered Dose 10 ml .ROUTE .STK-MED ONE Stop: 04/27/18 16:01 Cefazolin Sodium (Ancef) Confirm Administered Dose 1 gm .ROUTE .STK-MED ONE Stop: 04/27/18 16:01 Dexamethasone (Dexamethasone) Confirm Administered Dose 20 mg .ROUTE .STK-MED ONE Stop: 04/27/18 16:11 Fentanyl (Sublimaze) Confirm Administered Dose 100 mcg .ROUTE .STK-MED ONE Stop: 04/27/18 16:02 Glycopyrrolate (Robinul) Confirm Administered Dose 0.4 mg .ROUTE .STK-MED ONE Stop: 04/27/18 16:11 Hydromorphone HCl (Dilaudid) Confirm Administered Dose 2 mg .ROUTE .STK-MED ONE Stop: 04/27/18 16:02 Hydromorphone HCl (Dilaudid) 2 mg IVPUSH ONETIME ONE Stop: 04/27/18 17:07 Last Admin: 04/27/18 19:09 Dose: Not Given Sodium Chloride (Normal Saline) 1,000 mls @ 999 mls/hr IV .Bolus ONE Stop: 04/27/18 12:32 Last Admin: 04/27/18 11:58 Dose: 999 mls/hr Piperacillin Sod/Tazobactam (Sod 3.375 gm/ Sodium Chloride) 50 mls @ 100 mls/ hr IV ONETIME ONE Stop: 04/27/18 14:30 Last Admin: 04/27/18 14:23 Dose: 100 mls/hr Lidocaine HCl (Xylocaine-Mpf 1%) Confirm Administered Dose 5 mls @ as directed .ROUTE .STK-MED ONE Stop: 04/27/18 16:11 Acetaminophen (Ofirmev) Confirm Administered Dose 100 mls @ as directed IV .STK- MED ONE Stop: 04/27/18 17:59 Acetaminophen 1,000 mg/ Premix 100 mls @ 400 mls/hr IV NOW ONE Stop: 04/27/18 18:19 Last Admin: 04/27/18 18:10 Dose: 400 mls/hr Cefoxitin Sodium 1 gm/ Premix 50 mls @ 100 mls/hr IV Q8H KASIA Stop: 04/28/18 05:29 Last Admin: 04/28/18 05:30 Dose: 100 mls/hr Iopamidol (Isovue Multipack-370 (76%)) 100 ml IVPUSH ONETIME STA Stop: 04/27/18 13:11 Last Admin: 04/27/18 13:11 Dose: 100 ml Ketorolac Tromethamine (Toradol) 30 mg IVPUSH ONETIME ONE Stop: 04/27/18 12:27 Last Admin: 04/27/18 12:37 Dose: 30 mg Meperidine HCl (Demerol) 12.5 mg IVPUSH ONETIME ONE Stop: 04/27/18 17:07 Last Admin: 04/27/18 18:06 Dose: 12.5 mg Meperidine HCl (Demerol) 12.5 mg IV ONETIME ONE Stop: 04/27/18 18:06 Last Admin: 04/27/18 19:09 Dose: Not Given Midazolam HCl (Versed 1 Mg/Ml) Confirm Administered Dose 2 mg .ROUTE .STK-MED ONE Stop: 04/27/18 16:02 Neostigmine Methylsulfate (Neostigmine) Confirm Administered Dose 5 mg .ROUTE .STK-MED ONE Stop: 04/27/18 16:11 Ondansetron HCl (Zofran) Confirm Administered Dose 4 mg .ROUTE .STK-MED ONE Stop: 04/27/18 16:11 Promethazine HCl (Phenergan) 12.5 mg IM ONETIME ONE Stop: 04/27/18 17:07 Last Admin: 04/27/18 19:09 Dose: Not Given Propofol (Diprivan 20 Ml) Confirm Administered Dose 200 mg .ROUTE .STK-MED ONE Stop: 04/27/18 16:02 Rocuronium [place] (Zemuron) Confirm Administered Dose 100 mg .ROUTE .STK-MED ONE Stop: 04/27/18 16:11 Succinylcholine Chloride (Quelicin) Confirm Administered Dose 200 mg .ROUTE .[facility] -MED ONE Stop: 04/27/18 16:11 - Exam General: Reports: Alert, Oriented, Cooperative, No Acute Distress HEENT: Reports: Pupils Equal, Pupils Reactive Neck: Reports: Supple, Trachea Midline Lungs: Reports: Clear to Auscultation, Normal Respiratory Effort Cardiovascular: Reports: Regular Rate, Regular Rhythm, No Murmurs. Denies: Tachycardia GI/Abdominal Exam: Normal Bowel Sounds, Soft, Non-Tender, No Distention, No Mass. No: Guarding, Rigid, Rebound (Female) Exam: Deferred Rectal (Female) Exam: Deferred Back Exam: Reports: Normal Inspection Extremities: Normal Inspection Skin: Reports: Warm, Dry, Intact Wound/Incisions: Reports: Dressing Dry and Intact, No Drainage Neurological: Reports: No New Focal Deficit Psy/Mental Status: Reports: Alert, Normal Affect, Normal Mood Discharge Operative/Procedures - Procedures Performed Operations: Laparoscopic appendectomy
== END 2018-04-28 15:00 | disposition home or self-care (01) ==
LOC: MW.ED 11:27 → MW.SDS 16:02 → MW.MS 18:24 → MW.SDS 04-28 15:00
PROVIDERS: ATTEND Surgery
DX: K35.80 Unspecified acute appendicitis (principal)
CPT/HCPCS: 36415; 44970; 74177; 80053; 81001; 81025; 83690; 85025; 96361; 96365; 96375; 99285; A9270; J0131; J0330; J0694; J1100; J1170; J1885; J2001; J2175; J2250; J2405; J2543; J2704; J3010; J3490; J7040; J7050; J7120; Q9967; 99284; J0690